=== PATIENT | female | born 1955 | race Caucasian/White ===

== ENCOUNTER 2024-09-29 10:18 | Outpatient (CLI) | payer MEDICARE, SELFPAY ==
--- NOTE | ~2024-09-29 | CT_ITS ---
CT Scan of the Chest without Contrast: Clinical Indication: Lung cancer screening, nicotine dependence Technique: Contiguous sections were acquired throughout the chest without intravenous contrast. Dose reduction technique was used on this scan by utilizing automated exposure control and iterative recon struction technique. The dose-length product (DLP) was 41.23 mGy-cm. Findings: There is no evidence of any significant mediastinal, hilar or axillary lymphadenopathy. The mediastin al soft tissues appear normal. There is no evidence of pleural or pericardial effusion. There is mild peripheral chronic interstitial change. There is linear scarring left lower lobe. No di screte pulmonary nodule evident. Images through the upper abdomen reveal no abnormalities. Impression: Lung RADS 2: Benign appearance. 12 month follow-up screening CT advised. Reviewed, dictated and finalized at location . Impression: Lung RADS 2: Benign appearance. 12 month follow-up screening CT advised.
== END 2024-09-29 10:19 | disposition home or self-care (01) ==
LOC: MICIMG 10:19
PROVIDERS: PCP Family Medicine; Visit Provider Family Medicine
DX: Z12.2 Encounter for screening for malignant neoplasm of respiratory organs (principal); F17.211 Nicotine dependence, cigarettes, in remission
CPT/HCPCS: 71271

== ENCOUNTER 2024-10-01 13:00 | Outpatient (CLI) | payer MEDICARE, SELFPAY ==
--- NOTE | ~2024-10-01 | DEXA_ITS ---
Bone Density Report Name: BETTY CHRISTY Age: 69 Sex: Female Ethnicity: White Date of : 1955 Indication: postmenopausal; screening for osteoporosis; height loss; prior fracture; asthma or emphysema; hysterectomy; Referring Provider: MARIANO YANES Study: Bone densitometry was performed. Exam Date: October 01, 2024 Accession number: [id number] Bone Density: Region BMD T-score Z-score Classification AP Spine(L1-L4) 0.787 -2.4 -0.2 Osteopenia Femoral Neck (Left) 0.578 -2.4 -0.6 Osteopenia Total Hip (Left) 0.740 -1.7 -0.1 Osteopenia Femoral Neck (Right) 0.561 -2.6 -0.8 Osteoporosis Total Hip (Right) 0.737 -1.7 -0.1 Osteopenia Femoral Neck Mean 0.570 -2.5 -0.7 Osteoporosis Total Hip Mean 0.738 -1.7 -0.1 Osteopenia World Health Organization criteria for BMD impression classify patients as: Normal (T-score at or above -1.0), Osteopenia (T-score between -1.0 and -2.5), or Osteoporosis (T-score at or below -2.5). 10-year Fracture Risk: FRAX not reported because: Some T-score for Spine Total or Hip Total or Femoral Neck at or below -2.5 Clinical Information Provided by Patient: Has had a low trauma fracture Has used the following medications: Vitamin D, Calcium Has the following medical conditions: Asthma or Emphysema, Hysterectomy Patient maximum height was 67 Menopause Age: 49 No regular weight bearing exercise Onset of menses at age 13 Number of children 1 Impression: The patient has established osteoporosis, based on the Right Femoral Neck T-score and the existence of a prior fracture. The patient has risk factors, including: previous fracture. Discussion: HIGH RISK OF FRACTURE. BONE DENSITY IS UNDESIRABLY LOW AT ONE OR MORE SKELETAL SITES, CONSISTENT WITH POSTMENOPAUSAL OSTEOPOROSIS. This patient's lowest T-score, in a patient who has previously fractured, meets the World Health Organization's (WHO) criteria for severe osteoporosis. In untreated patients, the risk of osteoporotic fracture increases approximately two-fold for each 1.0 SD decrease in T-score. Low bone density is not the only risk factor for fracture; also consider factors such as patient's age, frailty or poor health, risk of falling, risk of injury, previous osteoporotic fracture, family history of osteoporosis, cigarette smoking, low body weight, etc. Not everyone with low bone mineral density has osteoporosis; osteomalacia and other metabolic bone disorders should also be considered. Patients who have osteoporosis should be evaluated for specific diseases and conditions (secondary causes) that may cause or contribute to bone loss. The [place] [employer] Clinical Endocrinologists (AACE) and National Osteoporosis Foundation (NOF) recommend pharmacologic intervention for all postmenopausal women whose T-score is in this range. The patient should follow a healthful lifestyle (good nutrition with adequate calcium and vitamin D, and appropriate weight-bearing exercise). Follow-Up: Consider a repeat BMD and Vertebral Fracture Assessment (VFA) exam in 2 years or sooner if medically necessary, to reassess this patient's status. Reported by: VAMSHI on 10/01/2024 1:29:00 PM. Reviewed, dictated and finalized at location A.
--- NOTE | ~2024-10-01 | MM_ITS ---
EXAMINATION: MM screening marilou BI w marcelo HISTORY: Screening TECHNIQUE: Craniocaudal and mediolateral oblique 3-D tomosynthesis images were obtained and synthetic 2-D images were generated. CAD analysis was submitted and interpreted. COMPARISON: No prior mammogram is available for comparison at this institution. BREAST PARENCHYMAL COMPOSITION: Not dense: There are scattered areas of fibroglandular density. FINDINGS: There is no evidence of suspicious mass, calcification, or architectural distortion to sugg est malignancy in either breast. There has been no suspicious interval change. IMPRESSION: 1. No mammographic evidence of malignancy. 2. Recommend routine screening mammography in one year. BI-RADS Category 1: Negative Reviewed, dictated and finalized at location A.
--- OUTSIDE RECORDS SUMMARY | 2024-10-01 14:33 | XMS_ITS | Clinical Summary ---
Author Organization [facility] Address [address] [place] [address] Care Team Providers Care Mold Clamper Name Role Phone Rfanco Bryant Larry APRN-RESEARCH COMPLIANCE SPECIALIST Unavailable [phone] Karuna Zarate MD Primary Care Provider Source Comments [facility],non-owned Affiliates and Associated Physician Practices is amultiple site organization consisting of ambulatory clinics and hospital sitesin [place], [place], [place] and [place]. This disclosure is being madepursuant to the Care Everywhere program and may not contain all information available regarding this patient. Last updated 18.[facility] Allergies Active Allergy Reactions Criticality Noted Date Comments Duloxetine Swelling 02/03/2020 Influenza Vaccines Other 01/29/2015 Paroxetine Other 05/13/2015 Pregabalin Palpitations 11/23/2020 Other reaction(s): Other (See Comments) Other reaction(s): Other Muscle twinges/spasms, loss of coordination, change in memory Muscle twinges/spasms, loss of coordination, change in memory Muscle twinges/spasms, loss of coordination, change in memory Muscle twinges/spasms, loss of coordination, change in memory Muscle twinges/spasms, loss of coordination, change in memory Other reaction(s): Other Muscle twinges/spasms, loss of coordination, change in memory Muscle twinges/spasms, loss of coordination, change in memory Sertraline Diarrhea Low 05/13/2015 Medications * Be aware that medications may not be up to date on this document. Alwaysverify current medications with the patient. calcium carbonate-berna min D 600-400 MG-UNIT tablet Take 1 (one) tablet by mouth 3 times daily Active B Complex Vitamins (B COMPLEX PO) Take 1 tablet by mouth once daily Active acetaminophen (TYLENOL) 500 MG capsule Take 1 (one) capsule by mouth as needed for Fever or Pain Active FLUoxetine (PROzac) 20 MG capsule Active FLUoxetine (PROzac) 10 MG capsule TAKE 1 CAPSULE BY MOUTH DAILY IN ADDITION TO 20MG CAPSULE FOR TOTAL OF 30MG 03/10/20 24 Active GNP Magnesium Oxide 250 MG TAKE 1 TABLET BY ORAL ROUTE 2 TIMES DAILY 03/03/20 24 Active primidone (Mysoline) 50 MG tablet Take 1 (one) tablet by mouth 4 times daily Active omeprazole (PriLOSEC) 20 MG capsule TAKE 1 CAPSULE BY ORAL ROUTE ONCE DAILY FOR HEARTBURN Active fluticasone propionate (Flonase) 50 MCG/ACT nasal spray [place] 1 (one) spray into each nostril 2 times daily 16 g 5 05/22/20 24 Active cetirizine (ZyrTEC) 10 MG tablet Take 1 (one) tablet by mouth once daily 30 tablet 5 05/22/20 24 Active clonazePAM (KlonoPIN) 0.5 MG tablet Take 1 (one) tablet by mouth 2 times daily as needed for Anxiety 60 tablet 05/22/20 24 Active albuterol HFA (Proventil; Ventolin; Proair) 108 (90 Base) MCG/ACT inhaler INHALE 2 PUFFS BY MOUTH EVERY 6 HOURS NEEDED 18 g 1 09/03/19 25 Active meloxicam (Mobic) 7.5 MG tablet TAKE 1 TABLET BY MOUTH DAILY 30 tablet 09/17/19 25 Active meloxicam (Mobic) 7.5 MG tablet Take 1 (one) tablet by mouth once daily 30 tablet 1 05/22/20 24 025 Discontinued albuterol HFA (Proventil; Ventolin; Proair) 108 (90 Base) MCG/ACT inhaler Inhale 2 (two) puffs by mouth every 6 hours as needed 18 g 1 05/22/20 24 025 Discontinued Active Problems Problem Noted Date Diagnosed Date 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 Acute otitis externa of left ear 05/22/2024 Controlled substance agreement signed 05/22/2024 Personal history of sudden cardiac arrest 2021 Participant in health and wellness plan 05/17/20 22 Otalgia of both ears 05/17/2022 Numerous moles 05/17/2022 Moderate episode of recurrent major depressive d isorder 05/17/2022 Migraine without aura and wi thout status migrainosus, not intractable 05/17/2022 Meniere's disease of right ear 05/17/2022 Right shoulder tendonitis 05/17/2022 Left shoulder tendonitis 05/17/2022 History of chest pain 05/17/2022 H/O hysterectomy for benign disease 05/17/2022 Frontal sinus pain 05/17/2022 Patient left without being seen 05/17/2022 Easy bruising 05/17/2022 Dysphagia 05/17/2022 Difficult or painful urination 05/17/2022 Degenerative disc disease, lumbar 05/17/2022 Chills without fever 05/17/2022 Biceps tendon tear 05/17/2022 Benign paroxysmal positional vertigo of left ear 05/17/2022 Arthritis 05/17/2022 Ankle fracture, right 05/17/2022 Acute recurrent sinusitis 05/17/2022 Seborrheic keratoses 05/17/2022 Sensorineural hearing loss 05/17/2022 Panic attacks 05/17/2022 Post-COVID syndrome 02/17/2022 Bradycardia 02/17/2022 Breast lump 05/10/2021 Opioid withdrawal 04/26/2021 Elevated troponin 04/24/2021 Lumbar facet arthropathy 11/04/2020 Essential tremor 02/03/2020 Anxiety 11/11/2019 COPD 11/11/2019 Major Depression 11/11/2019 Glenoid labrum tear 04/16/2019 Gastro-esophageal reflux disease with esophagiti s 02/12/2019 Duodenal ulcer disease 02/12/2019 Paroxysmal atrial fibrillation 09/04/2018 Arthralgia 01/18/2018 Presence of intraocular lens 04/05/2017 Age-related nuclear cataract, bilateral 04/04/20 17 Contusion of rib on right side 01/23/2017 Fall 01/17/2017 Spinal stenosis 01/11/2017 Overview (05/22/2024): Added automatically from request for surgery [id number] Prediabetes 11/28/2016 Peripheral polyneuropathy 10/19/2016 Irritable bowel syndrome 09/28/2016 Tobacco abuse 09/28/2016 Anxiety and depression 06/23/2016 Patellofemoral stress syndrome 04/28/2016 Somatic dysfunction of lower extremities 016 Somatic dysfunction of lumbar region 04/18/2016 Dysfunction of right rotator cuff 12/01/2015 Chronic bilateral low back pain 11/11/2015 Abnormal MRI, cervical spine 10/27/2015 Prolapsed cervical intervertebral disc 6 History of basal cell carcinoma (BCC) 05/26/2015 Thoracic outlet syndrome 05/26/2015 Tobacco dependence syndrome 05/26/2015 Tremor 04/05/2015 Overview (05/22/2024): Primidone, as needed, but causes sedation Saw neurologist who diagnosed it with essential tremor. 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 was performing music and it didn't help her too much The more she works out she shakes, worse when she is using her muscles and moving - worse on the whole left side -memory hs been questionable the older she gets the worse it gets, lose tracks of words, can't think of the right word - starting to forget their first or last names of friends - Gastroesophageal reflux disease 02/24/2015 Fibromyalgia 02/16/2015 Vitamin D deficiency 02/16/2015 Seasonal allergies 01/29/2015 Resolved Problems Problem Noted Date Diagnosed Date Resolved Date Gastroenteritis 05/17/2022 06/05/2024 Diarrhea 05/17/2022 06/19/2024 Cough 05/17/2022 06/19/2024 Encounters Date Type Department Care Team Description 09/23/2024 Bulk Orders Only [facility] - Family Medicine [address] [place] [address] Karuna Zarate MD Screening mammogram for breast cancer 09/16/2024 Refill [facility] [address], [address] [place] [address] Karuna Zarate MD Refill Request 09/02/2024 Refill [facility] [address], [address] [place] [address] Karuna Zarate MD Refill Request 08/12/2024 Travel 07/10/2024 1:20 PM SALES NEGOTIATOR Office Visit [facility] - Orthopedic Surgery [address] [place] [address] [phone] Darnell Estrada MD Traumatic complete tear of right rotator cuff, subsequent encounter (Primary Dx) 07/10/2024 Travel 07/04/2024 2:00 PM SALES NEGOTIATOR Office Visit [facility] [address] [place] [address] Karuna Zarate MD Larsen, Paul M, MD Paroxysmal atrial fibrillation (Primary Dx); History of atrial fibrillation; Palpitations 07/04/2024 Travel from Last 3 Months Immunizations Immunization Administration Dates Next Due Pneumococcal Pcv13 Conj 11/11/2019 Family History Medical History Relation Name Comments Hypertension Brother CAD (Coronary Artery Disease) Father Dementia Father Mental Illness - Other Mother Relation Name Status Comments Brother Alive Father Mother Social History Tobacco Use Types Packs/Day Years Used Date Smoking Tobacco: Former Cigarettes 1 48 1 969 - 2017 Smokeless Tobacco: Never Tobacco Cessation:Counseling Given: Not Answered Alcohol Use Standard Drinks/Week Comments Yes 0 (1 standard drink = 0.6 oz pur e alcohol) RARE PHQ-2 Answer Date Recorded Patient Health Questionnaire-2 Score 0 05/22/2024 Comments No Sex and Gender Information Value Date Recorded Sex Assigned at Not on file Legal Sex Female 6:26 AM SALES NEGOTIATOR Gender Identity Not on file Sexual Orientation Not on file Last Filed Vital Signs Vital Sign Reading Time Taken Comments Blood Pressure 108/78 07/04/2024 2:18 PM SALES NEGOTIATOR Pulse 78 07/04/2024 2:18 PM SALES NEGOTIATOR Temperature 36.7 C (98 F) 07/04/2024 2:18 PM SALES NEGOTIATOR Respiratory Rate 20 02/03/2020 11:22 AM CDT Oxygen Saturation 97% 05/22/2024 2:47 PM SALES NEGOTIATOR Inhaled Oxygen Concentration - - Weight 57.2 kg (126 lb) 07/04/2024 2:18 PM SALES NEGOTIATOR Height 167.6 cm (5' 6 ) 05/29/2024 11:25 AM SALES NEGOTIATOR Body Mass Index 20.34 05/29/2024 11:25 AM SALES NEGOTIATOR Plan of Treatment Upcoming Encounters Date Type Department Care Team (Late st Contact Info) Description 07/10/2025 1:30 PM SALES NEGOTIATOR Office Visit [facility] [address] [place] [address] Alfredo Ward MD [address] [place] [address] [address] [place] [address] Health Maintenance Due Date Last Done Comments COLOGUARD (AGES 45-75) - COLON CA SCREENING [address] COLON[address]APHY - COLON CA SCREENING 1955 FLEX SIG - COLON CA SCREENING 1955 DTAP/TDAP/TD VACCINES (1 - Tdap) 1973 ZOSTER VACCINE (1 of 2) 2004 Respiratory Syncytial Virus (RSV) Vaccine Pt: or over 60 yrs (1 - Risk 60-74 years 1-dose series) 2014 FIT - COLON CA SCREENING 06/28/2017 06/28/2016, 10/2014 PNEUMOCOCCAL VACCINE 50+ (2 of 2 - PPSV23) 01/06/2020 11/11/2019 LUNG CANCER SCREENING 04/03/2020 04/03/2019 MAMMOGRAM 10/18/2023 10/17/2021, 01/14/2020 COVID-19 VACCINE (3 - 2023-2 5 season) 2024 06/30/2021, 09/16/2020 DEPRESSION SCREENING 06/11/2024 05/22/2024 MEDICARE AWV CALENDAR YEAR 2024 11/11/2019 INFLUENZA VACCINE (Season Ended) 2025 COLONOSCOPY - COLON CA SCREENING 04/11/2028 04/11/2018 (Done Outside Per Report) Colorectal Cancer Screening 04/11/2028 LIPID TESTING 05/27/2029 05/27/2024, 04/04/2019, 04/04/2019 BONE DENSITY TESTING Completed 10/05/2021, 01/14/20 HEPATITIS C SCREENING Completed 10/23/2022 HEPATITIS B VACCINE Aged Out No longe r eligible based on patient's age to complete this topic HIB VACCINE Aged Out No longer eligi ble based on patient's age to complete this topic HPV VACCINE Aged Out No longer eligi ble based on patient's age to complete this topic MENINGOCOCCAL (Group B) VACCINE SHARED DECISION-MAKING Aged Out No longer eligible based on patient's age to complete this topic MENINGOCOCCAL GROUPS A/C/Y/W VACCINE Aged Out No longer eligible based on patient's age to complete this topic Procedures Procedure Name Priority Date/Time Associated Diagnosis Comments AMB REFERRAL TO CARDIOLOGY Routine 07/04/2024 5:25 PM SALES NEGOTIATOR Palpitations History of atrial fibrillation LIPID PROFILE Routine 05/27/2024 9:20 AM SALES NEGOTIATOR Screening for cardiovascular condition DEXA BONE DENSITY AXIAL SKELETON Routine 01/14/2020 1:20 PM CDT Ovarian failure MAMMO BILAT SCREENING Routine 01/14/2020 1:19 PM CDT Breast cancer screening from Last 3 Months or Most Recently Relevant to Health Maintenance Results * AMB REFERRAL TO CARDIOLOGY (07/04/2024 5:25 PM SALES NEGOTIATOR) Karuna Zarate MD OUTPATIENT REFERRALS Fi nal Result * (ABNORMAL) LIPID PROFILE (05/27/2024 9:20 AM SALES NEGOTIATOR) Cholesterol 266(H) 100 - 199 mg/dL [facility] INSURANCE BILL Triglycerides 132 0 - 149 mg/dL [facility] INSURANCE BILL HDL Cholesterol 70 >39 mg/dL [facility] INSURANCE BILL VLDL Calculated 23 5 - 40 mg/dL [facility] INSURANCE BILL LDL Calculated 173(H) 0 - 99 mg/dL [facility] INSURANCE BILL Blood BLOOD SPECIMEN / Unknown 05/27/2024 9:20 AM SALES NEGOTIATOR 05/27/2024 Narrative [facility] INSURANCE BILL - 05/28/2024 6:09 AM SALES NEGOTIATOR [facility]formed at: [facility] [address], [place], [place] [id number] Inhalation Therapy Aide: Tang Linda PhD, Phone: [phone] us Karuna Zarate MD LAB - CHEMISTRY ORDERAB LES Final Result [facility] INSURANCE BILL [address] [place] [address] * DEXA BONE DENSITY AXIAL SKELETON (01/14/2020 1:20 PM CDT) Anatomical Region Laterality Modality Mammography 01/14/2020 1:26 PM CDT Narrative 01/14/2020 1:27 PM CDT BONE MINERAL DENSITY STUDY INDICATION: Osteoporosis screening. Postmenopausal status. FINDINGS: The average bone mineral density from L1 to L4 is0.900 g/cm2. The T-score is -2.3 and the Z-score is -0.2. The average bone mineral density of the totalmean hips is 0.742 g/cm2. The T-score is -2.1 and the Z-score is -0.5. ASSESSMENT: Findings are consistent with osteopenia. There is a moderately increased fracture risk. WORLD HEALTH ORGANIZATION DEFINITIONS OSTEOPENIA = -1 to -2.5 SD BELOW T SCORE. OSTEOPOROSIS = Less than -2.5 SD BELOW T SCORE *Reading Radiologist: Johanna Mera on 01/14/2020 at 1:27 PM Procedure Note Johanna Mera MD - 01/14/2020 BONE MINERAL DENSITY STUDY INDICATION: Osteoporosis screening. Postmenopausal status. FINDINGS: The average bone mineral density from L1 to L4 is0.900 g/cm2. The T-score is -2.3 and the Z-score is -0.2. The average bone mineral density of the totalmean hips is 0.742 g/cm2. The T-score is -2.1 and the Z-score is -0.5. ASSESSMENT: Findings are consistent with osteopenia. There is a moderately increased fracture risk. WORLD HEALTH ORGANIZATION DEFINITIONS OSTEOPENIA = -1 to -2.5 SD BELOW T SCORE. OSTEOPOROSIS = Less than -2.5 SD BELOW T SCORE *Reading Radiologist: Johanna Mera on 01/14/2020 at 1:27 PM Griffin Beltran MD DEXA ORDERABLES Final Result * MAMMO BILAT SCREENING (01/14/2020 1:19 PM CDT) Anatomical Region Laterality Modality Breast Bilateral Mammography 01/14/2020 2:20 PM CDT Narrative 01/14/2020 2:25 PM CDT DIGITAL BILATERAL SCREENING MAMMOGRAMS WITH CAD AND 3-D TOMOSYNTHESIS DATE: 01/14/2020, 12:43 PM PREVIOUS EXAM DATE: None, new baseline. INDICATION: Screening TECHNIQUE: Bilateral craniocaudad (CC) and mediolateral oblique (MLO) views. Images were interpreted with the aid of CAD. 3-D tomosynthesis images were performed. TECHNOLOGIST: Corinne Muñiz, RT (R)(M) TISSUE DENSITY: Heterogeneously dense. This may lower the sensitivity of mammography. Please correlate with clinical examination. FINDINGS: Benign-appearing calcifications are noted. There is subareolar dense tissue. No mass nor microcalcification nor worrisome finding is evident in either breast. ASSESSMENT: (BI-RADS 2) Benign finding. RECOMMENDATIONS: Continued annual screening mammography The above findings should be correlated with physical examination. A relatively nonspecific study should not preclude additional evaluation if suspicious findings are present clinically. An [employer]. [facility] Centers utilize [email or web address] as a reminder system to notify patients of their next recommended mammograms. Edited by Nicki Poole on 01/14/2020 2:21 PM *Reading Radiologist: Johanna Mera on 01/14/2020 at 2:25 PM Griffin Beltran MD MAMMO ORDERABLES Final Result from Last 3 Months or Most Recently Relevant to Health Maintenance Insurance MEDICAID - [place] [facility] MANAGED MEDICARE ADV Care Teams Mold Clamper Relationship Specialty Start Date End Date Karuna Zarate MD [address] [place] [id number] PCP - General Internal Medicine 05/22/24 Bryant Franco APRN-RESEARCH COMPLIANCE SPECIALIST Jillian [facility] [address] [place] [address] Nurse Practitioner Nurse Practitioner Psychiatric Mental Health 02/03/20
== END 2024-10-01 13:01 | disposition home or self-care (01) ==
LOC: CHSIMG 13:01
PROVIDERS: PCP Family Medicine; Visit Provider Family Medicine
DX: Z12.31 Encounter for screening mammogram for malignant neoplasm of breast (principal); Z78.0 Asymptomatic menopausal state; M85.89 Other specified disorders of bone density and structure, multiple sites; M81.0 Age-related osteoporosis without current pathological fracture
CPT/HCPCS: 77063; 77067; 77080

== ENCOUNTER 2025-04-10 12:41 | Outpatient (CLI) | payer MEDICARE, MEDICAID, SELFPAY ==
--- NOTE | ~2025-04-10 | MR_ITS ---
EXAMINATION: MR cervical spine wo con DATE: 04/10/2025 13:31 INDICATION: Neck pain. TECHNIQUE: Magnetic resonance imaging (MRI) of the cervical spine was performed without intravenous contrast. COMPARISON: None FINDINGS: There is 6 degrees dextrocurvature of cervical spine. Vertebral body heights are normal. There is mildly decreased disc height at C3-C4 and severely decreased disc height at C4-C5, C5-C6, and C6-C7. The spinal cord signal intensity is normal. The following disc levels are specifically discussed: C2-C3: There is a central extrusion. There is no uncovertebral joint osteoarthritis. There is severe right and moderate left facet joint osteoarthritis. There is no neural foraminal stenosis. There is no central canal stenosis. C3-C4: There is a central extrusion. There is severe left uncovertebral joint osteoarthritis. There is severe bilateral facet joint osteoarthritis. There is moderate left neural foraminal stenosis. There is no central canal stenosis. C4-C5: The disc is bulging. There is moderate right and severe left uncovertebral joint osteoarthritis. There is moderate right and severe left facet joint osteoarthritis. There is moderate left neural foraminal stenosis. There is mild central canal stenosis. C5-C6: The disc is bulging. There is severe bilateral uncovertebral joint osteoarthritis. There is mild bilateral facet joint osteoarthritis. There is mild bilateral neural foraminal stenosis. There is mild central canal stenosis. C6-C7: The disc is bulging. There is severe bilateral uncovertebral joint osteoarthritis. There is no facet joint osteoarthritis. There is mild right neural foraminal stenosis. There is mild central canal stenosis. C7-T1: The disc does not extend beyond the endplate margin. There is no uncovertebral joint osteoarthritis. There is moderate right and severe left facet joint osteoarthritis. There is mild left neural foraminal stenosis. There is no central canal stenosis. IMPRESSION: 1. Severe cervical spondylosis. Reviewed, dictated and finalized at location E.
== END 2025-04-10 12:42 | disposition home or self-care (01) ==
PROVIDERS: PCP Family Medicine; Visit Provider Family Medicine
DX: M47.812 Spondylosis without myelopathy or radiculopathy, cervical region (principal)
CPT/HCPCS: 72141

== ENCOUNTER 2025-04-13 05:41 | Emergency (ER) | payer MEDICARE, MEDICAID, SELFPAY ==
[2025-04-13 05:38] VITALS: BP 120/79; PULSE 81; RESP 14; TEMP 37; O2SAT 100
--- NOTE | 2025-04-13 05:49 | ECG_ITS ---
Test Date: 2025-04-13 05:52:59 Measurements Intervals [place] Rate: 91 P: 59 OK: 145 QRS: -28 QRSD: 85 T: 65 QT: 369 QTc: 456 Interpretive Statements SINUS RHYTHM BORDERLINE LEFT AXIS DEVIATION [QRS AXIS < -20] No previous ECG available for comparison Electronically Signed On 04-13-2025 09:39:29 RAIL WASHER by Ponce Horowitz M.D.
--- NOTE | 2025-04-13 07:14 | ED.ARRPALP ---
HPI - Arrhythmia/Palpitations General Chief Complaint: Arrhythmia/Palpitations Stated Complaint: palpations Time Seen by Provider: 04/13/25 06:59 History of Present Illness HPI narrative: Patient with h/o afib and anxiety had an episode of palpitations prior to arrival here; she did try taking a dose of clonazepam 20 minutes before EMS arrived, she converted back to sinus rhythm while in the ambulance. Related Data Home Medications ?Medication ?Instructions ?Recorded ?Confirmed ?Last Taken ?Type albuterol sulfate 90 mcg/actuation 1 puff inhalation Q4H PRN 08/12/24 03/17/25 Unknown History aerosol inhaler (Ventolin HFA) aspirin 81 mg tablet,delayed 81 mg PO DAILY 08/12/24 03/17/25 Unknown History release cetirizine 10 mg tablet 10 mg PO DAILY PRN 08/12/24 03/17/25 Unknown History fluticasone propionate 50 2 spray intranasal DAILY 08/12/24 03/17/25 Unknown History mcg/actuation nasal spray,suspension (Flonase Allergy Relief) fluoxetine 20 mg tablet 20 mg PO DAILY 03/17/25 03/17/25 Unknown History Allergies Allergy/AdvReac Type Severity Reaction Status Date / Time cat dander AdvReac Intermediate Asthma Verified 04/13/25 05:50 Influenza Virus Vaccines AdvReac Intermediate infection Verified 04/13/25 05:50 Phenylpiperazine AdvReac Intermediate Diarrhea Verified 04/13/25 05:50 Antidepressant ragweed pollen AdvReac Intermediate Asthma Verified 04/13/25 05:50 Review of Systems Review of Systems: All systems reviewed & are unremarkable except as noted in HPI and below PMFSH Past Medical History Medical History BMI (body mass index) 20.0-29.9 Panic disorder Depression with anxiety Chronic pain Osteoarthritis Irritable bowel Headache GERD (gastroesophageal reflux disease) COPD (chronic obstructive pulmonary disease) Arthritis Asthma Allergies Family History Family History Father Hypertension Heart problem Mother Alcoholism Depression Anxiety Thyroid disorder Sibling Alcoholism Hypertension Heart problem Other Asthma Depression Anxiety Grandparent Alcoholism Grandparent Cerebrovascular accident Social History Social History Social History: Caffeine-green tea occasionally Smoking status: Former smoker Second hand tobacco smoke exposure: Yes Smoking end date: 08/10/19 Alcohol intake: current Alcohol use details: rarely Substance use: current Substance use type: marijuana Do You Feel Safe in your Home?: Yes Lack of Transportation: No Lack of Food: Never True Current Housing: I Have Housing Concerned About Future Housing: No Difficulty Paying Gas/Electric Bills: No Difficulty Paying for Meds: No Currently Unemployed: No Education: Associate Degree Difficulty w/ Childcare or Family Care: No Living arrangements: with family Occupation/Education: occupation 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 EYES: EOMI, conjunctiva normal ENT: Hearing grossly intact LUNGS: Nonlabored breathing. HEART: [Regular rate and rhythm] ABD: [Soft], [nontender to palpation] EXT: Normal range of motion SKIN: [No rashes or lesions.] NEURO: [Alert and oriented x 3. No gross focal sensory or strength deficits.] PSYCH: Normal affect Course Vital Signs Vital signs: Vital Signs Temperature 98.6 F 04/13/25 05:38 Pulse Rate 81 04/13/25 05:38 Respiratory Rate 14 04/13/25 05:38 Blood Pressure 120/79 04/13/25 05:38 Pulse Oximetry 100 04/13/25 05:38 Oxygen Delivery Room Air 04/13/25 05:38 Temperature 98.6 F 04/13/25 05:38 Pulse Rate 81 04/13/25 05:38 Respiratory Rate 14 04/13/25 05:38 Blood Pressure 120/79 04/13/25 05:38 Pulse Oximetry 100 04/13/25 05:38 Oxygen Delivery Room Air 04/13/25 05:38 MDM - Arrhythmia/Palpitations MDM Narrative Medical decision making narrative: Patient presenting here with palpitations last less than hour, seem to have self resolved after taking some clonazepam at home, she is denying any complaints right now, she never had any chest pain or shortness of breath EKG here shows normal sinus rate and rhythm; On my independent interpretation, sinus rhythm rate 91, FL 145, QRS 185, QTC 456, no ST elevation or depression or signs of acute ischemia or arrhythmia; and she brought an EKG tracing with her from EMS that showed atrial fibrillation with rate in 150. electrolytes within acceptable limits. She does report having severe allergy last few days, she has been seeing her daughter craig who has multiple cats and she is allergic to cats. She is already taking Flonase, zyrtec, I did let her know she can go up on her dose of Zyrtec to several tabs a day, I will also rx azelastine spray, since she is already on Flonase. Patient agreeable to this. Lab Data 04/13/25 07:47 04/13/25 07:47 Labs: Lab Results 04/13/25 Range/Units 07:47 WBC 9.8 (4.5-10.0) K/mm3 RBC 4.23 (4.2-5.4) M/mm3 Hgb 13.0 (12.0-15.0) g/dL Hct 40.1 (37.0-47.0) % MCV 94.8 (80-100) fl MCH 30.7 (26-34) pg MCHC 32.4 (32-36) g/dl RDW 13.7 (11.5-14.5) % Plt Count 344 (150-375) k/mm3 MPV 9.4 (7.4-10.4) fl Immature Gran % (Auto) 0.3 (0-0.5) % Neut % (Auto) 70.2 (45.5-73.1) % Lymph % (Auto) 16.7 L (18.3-44.2) % Phillips % (Auto) 9.8 H (2.6-8.5) % Eos % (Auto) 2.2 (0-4.4) % Baso % (Auto) 0.8 (0.2-1.2) % Lymph # (Auto) 1.63 (0.9-3.2) K/mm3 Phillips # (Auto) 1.0 H (0.1-0.6) K/mm3 Eos # (Auto) 0.2 (0-0.3) K/mm3 Baso # (Auto) 0.1 (0.0-0.1) K/mm3 Abs Immat Gran (auto) 0.03 (0.00-0.031) K/mm3 Absolute Neuts (auto) 6.9 H (1.3-6.7) K/mm3 Absolute Nucleated RBC 0.000 (0.0-0.012) K/mm3 Nucleated RBC % 0.0 (0.0-0.2) % Sodium 139 (137-145) mmol/L Potassium 3.8 (3.4-5.0) mmol/L Chloride 108 H (98-107) mmol/L Carbon Dioxide 24 (22-30) mmol/L Anion Gap 7 (4-12) mmol/L BUN 14 (7-17) mg/dL Creatinine 0.65 L (0.7-1.0) mg/dL Estim Creat Clear Calc 62 ml/min Estimated GFR > 60 (59 - ) Glucose 116 H (65-110) mg/dL Calcium 9.0 (8.4-10.2) mg/dL Magnesium 1.8 (1.6-2.3) mg/dL Total Bilirubin 0.4 (0.2-1.3) mg/dL AST 31 (14-36) U/L ALT 19 (6-35) U/L Alkaline Phosphatase 71 (38-126) U/L Troponin I < 0.012 (0.000-0.034) ng/mL Total Protein 7.3 (6.3-8.2) g/dL Albumin 4.2 (3.5-5.1) g/dL Discharge Plan Discharge Clinical Impression: Palpitations Patient Disposition: Home Condition: Stable Instructions: A-fib (Atrial Fibrillation) (ED) Additional Instructions: your labs look normal today, please follow-up with a manager flight operations since if this happens again you may benefit from medications to keep your heart rate under control. You can always return to the emergency room for any further issues. Patient Language: Haitian Prescriptions: New azelastine 137 mcg (0.1 %) spray,non-aerosol 137 mcg intranasal Q12H Qty: 30 0RF Rx Instructions: administer into each nostril No Action albuterol sulfate [Ventolin HFA] 90 mcg/actuation HFA aerosol inhaler 1 puff inhalation Q4H PRN fluticasone propionate [Flonase Allergy Relief] 50 mcg/actuation spray,suspension 2 spray intranasal DAILY Rx Instructions: administer into each nostril cetirizine 10 mg tablet 10 mg PO DAILY PRN aspirin 81 mg tablet,delayed release (DR/EC) 81 mg PO DAILY meclizine 12.5 mg tablet 12.5 mg PO TID PRN (Reason: dizziness) Qty: 20 0RF fluoxetine 20 mg tablet 20 mg PO DAILY methocarbamol 500 mg tablet 500 mg PO TID PRN (Reason: muscle spasm) Qty: 30 0RF calcium carbonate-vitamin D3 600 mg-25 mcg (1,000 unit) capsule 1 cap PO DAILY Qty: 90 0RF clonazepam [Klonopin] 0.5 mg tablet 0.5 mg PO BID PRN (Reason: severe anxiety) Qty: 30 0RF Follow-up/Referrals: Fady Hall DO [Primary Care Provider, Family Practice] - 2 Days
--- OUTSIDE RECORDS SUMMARY | 2025-04-13 07:17 | XMS_ITS | Patient Health Record ---
Author Organization [facility] Address [address] [place] [address] Care Team Providers Care Welder Fitter Name Role Phone Fady Hall DO Primary Care Provider Maurice LeggettDonald dukeistin Unavailable [phone] ArceliaJulee mcclure Unavailable [phone] Allergies Allergen (clinical drug ingredient) Drug/Non Drug Allergy documented on EMR Reaction Allergy Type Onset Date Status Anti depressant (uncoded) Unknown Allergy Active Cats (uncoded) Unknown Allergy Activ e Vaccine product containing Influenza virus antigen (medicinal product) Flu vaccine (uncoded) Unknown Allergy Active Ragweed Unknown Allergy Active Results Component Value Reference Range Flag Notes DRUG MONITOR, BENZO, QN, URI NE ([id number]) Reviewed date:09/08/2024 09:24:22 PM Interpretation: Performing Lab:[facility] [id number], [id number] Jean Carlos Howard Notes/Report: FASTING: UNKNOWN Alphahydroxyalprazolam NEGATIVE <25 ng/mL Alphahydroxymidazolam NEGATIVE <50 ng/mL Alphahydroxytriazolam NEGATIVE <50 ng/mL Aminoclonazepam 138 <25 ng/mL H medMATCH Aminoclonazepam CONSISTENT Hydroxyethylflurazepam NEGATIVE <50 ng/mL Lorazepam NEGATIVE <50 ng/mL Nordiazepam NEGATIVE <50 ng/mL Oxazepam NEGATIVE <50 ng/mL Temazepam NEGATIVE <50 ng/mL Benzodiazepines Comments See Benzodiazepines Notes, LDT Notes PRESCRIBED DRUGS, medMATCH(R ) ([id number]) Reviewed date:09/08/2024 09:23:02 PM Interpretation: Performing Lab:[id number], [id number] Lydia Ramirez MD Notes/Report: FASTING: UNKNOWN medMATCH Summary Prescribed Prescribed Not Prescribed Consistent Inconsistent Inconsistent Clonazepam Marijuana Metabolite Prescribed Drug 1 Clonazepam DRUG MONITOR, MARIJUANA META B, QN, URINE ([id number]) Reviewed date:09/08/2024 09:24:34 PM Interpretation: Performing Lab:CB, [facility] [id number], [id number] Jean Carlos Howard, Director - [id number] [place] [facility] Notes/Report: FASTING: UNKNOWN Marijuana Metabolite >5000 <5 ng/mL H medMATCH Marijuana Metab INCONSISTENT A Marijuana Comments See Rodolfo estrada Notes, LDT Notes Notes and Comments This drug testing is for medical treatment only. Analysis was performed as non-forensic testing and these results should be used only by healthcare providers to render diagnosis or treatment, or to monitor progress of medical conditions. Benzodiazepines Notes: Aminoclonazepam detected is consistent with the use of the drug Clonazepam. Marijuana Notes: Marijuana Metabolite detected is consistent with exposure to Marijuana (THC) and/or hemp derived products. Some jurisdictions do not include hemp within the definition of Marijuana. LDT Notes: Confirmation tests were developed and their analytical performance characteristics have been determined by [facility]. It has not been cleared or approved by the FDA. This assay has been validated pursuant to the CLIA regulations and is used for clinical purposes. medMATCH(R) enables providers to identify if drug use is consistent or inconsistent with a corresponding prescribed medication(s) list. Healthcare Providers needing Interpretation assistance, please contact us at [phone] ( ) M-F, 8am to 10pm EST UDT Reviewed date:08/27/2024 02:20:13 PM Interpretation: Performing Lab: Notes/Report: Amphetamine (AMP) N 0 - 1000 ng/ml Buprenorphine (BUP) N 0 - 10 ng/ml Oxazepam (BZO) N 0 - 300 ng/ml Cocaine (NIGHAT) N 0 - 300 ng/ml Methamphetamine (mAMP) N 0 - 300 ng/ml Methylenedioxymethamphetamin e (MDMA) N 0 - 500 ng/ml Morphine (MOP) N 0 - 25 ng/ml Methadone (MTD) N 0 - 300 ng/ml Oxycodone (OXY) N 0 - 300 ng/ml THC P 0 - 50 ng/ml x N 0 - 1000 ng/ml x N 0 - 1000 ng/ml x N 0 - 300 ng/ml x N 0 - 300 ng/ml x N 0 - 300 ng/ml Reason For Referral No Information Medications Medication SIG (Take, Route, Frequency, Duration) Notes Start Date End Date Status FLUoxetine HCl 20 MG Tablet 1 tablet Oral daily; Duration: 90 days Active Albuterol Sulfate HFA 108 (90 Base) MCG/ACT Aerosol Solution INHALE 2 PUFFS BY MOUTH EVERY 6 HOURS NEEDED Inhalation; Duration: 25 Days Active Cetirizine HCl 10 MG Tablet TAKE 1 TABLET BY MOUTH ONCE DAILY Oral; Duration: 30 Days Active clonazePAM 0.5 MG Tablet TAKE 1 TABLET B Y MOUTH TWICE DAILY NEEDED FOR SEVERE ANXIETY Oral Active Fluticasone Propionate 50 MCG/ACT Suspension SHAKE LIQUID AND USE 1 SPRAY IN EACH NOSTRIL TWICE DAILY Nasal; Duration: 30 Days Active Meloxicam 7.5 MG Tablet TAKE 1 TABLET BY MOUTH DAILY Oral; Duration: 30 Days Not-Taking Social History Tobacco Use: Social History Observation Description Date Details (start date - stop date) Former Smoker NA - 08/10/2019 Sex Assigned At : Social History Observation Description Sex Assigned At Female Social History Miscellaneous: Social Info Question Answer Notes Advance Care Planning Advance Directive Durable Power of Bulb Brander for Healthcare,Living Will Safety issues: Do you feel safe at home? Yes Are there any firearms in the house? No Social History Social Info Question Answer Notes Household: Marital Status: Number of Adults in household: 2 Number of Children in Household: 0 Level of Education: Not Finished College Household: Social Info Question Answer Notes Household Number of adults in household: 2 Drug/Alcohol: Social Info Question Answer Notes Drugs Have you used drugs other than those for medical reasons in the past 12 months? No AUDIT-C (Standard) Points 1 Did you have a drink containing alcohol in the p ast year? Yes How often did you have six or more drinks on one occasion in the past year? Never (0 point) How many drinks did you have on a typical day when you were drinking in the past year? 1 or 2 drinks (0 point) How often did you have a drink containing alcohol in the past year? Monthly or less (1 point) Tobacco Use: Social Info Question Answer Notes Tobacco Control (Standard) Tobacco use: Former smoker When did you stop smoking? 08/10/2019 How long has it been since you last smoked? 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 THC vape Do you drink alcohol? No Problems Problem Type SNOMED Code ICD Code Onset Dates Problem Status W/U Status Risk Notes Problem Mild recurrent major depression (25713002) Major depressive disorder, recurrent, mild (F33.0) Active confirmed Problem Generalized anxiety disorder (75799534) Generalized anxiety disorder (F41.1) Active confirmed Problem Nondependent cannabis abuse (949084514) Marijuana use (F12.90) Active confirmed Problem Long-term current use of drug therapy (054906690) correction prescription benzodiazepine use (Z79.899) Active confirmed Vital Signs Heart Rate 60 /min 03/09/2025 Height-cm 165.1 cm 03/09/2025 Blood pressure diastolic 73 mm Hg 03/09/2025 Weight-kg 57.15 kg 03/09/2025 Height 65 in 03/09/2025 Blood pressure systolic 115 mm Hg 03/09/2025 Weight 126.0 lbs 03/09/2025 BMI 20.97 kg/m2 03/09/2025 Encounters Encounter Location Date Provider Diagnosis [facility] [address] [place] [address] [address] 08/26/2024 Sheryl Yoanna Generalized anxiety disorder F41.1 ; Major depressive disorder, recurrent, mild F33.0 ; Marijuana use F12.90 ; propagation manager prescription benzodiazepine use Z79.899 ; Encounter for screening for depression Z13.31 and Encounter for screening for cardiovascular disorders Z13.6 [facility], [place] [address] [address] 09/17/2024 Julee Rahman Generalized anxiety disorder F41.1 [facility], [address] [address] 09/24/2024 Julee Paniaguater Generalized anxiety disorder F41.1 [facility] [place] [address] [place] [address] 09/24/2024 Julee Rahman Generalized anxiety disorder F41.1 and Major depressive disorder, recurrent, mild F33.0 [facility] [place] [address] [place] [address] 10/15/2024 Julee Rahman Generalized anxiety disorder F41.1 [facility] [place] [address] [place] [address] 11/26/2024 Julee Rahman [facility] [address] [place] [address] 03/09/2025 Sheryl Lenz Major depressive disorder, recurrent, mild F33.0 ; Generalized anxiety disorder F41.1 and Marijuana use F12.90 [facility] [address] [place] [address] 08/27/2024 Sheryl Lenz Generalized anxiety disorder F41.1 and Major depressive disorder, recurrent, mild F33.0 [facility] [address] [place] [address] 09/22/2024 Sheryl Lenz [facility] [address] [place] [address] 10/08/2024 Sheryl Lenz [facility] [address] [place] [address] 02/11/2025 Sheryl Lenz Assessments Encounter Date Diagnosis (ICD Code) Assessment Notes Treatment Notes Treatment Clinical Notes Section Notes 08/27/2024 Major depressive disorder, recurrent, mild (ICD-10 - F33.0) 08/27/2024 Generalized anxiety disorder (ICD-10 - F41.1) 09/17/2024 Generalized anxiety disorder (ICD-10 - F41.1) 09/24/2024 Major depressive disorder, recurrent, mild (ICD-10 - F33.0) 1. Depression and Anxiety Assessment: - Reports improvement in depressive symptoms, stating not feeling depressed, crying over everything, or feeling sad like I can't go on - Acknowledges ongoing concerns about the state of the country and worries for herself and her grandchildren - Engaging in physical activities, such as swimming at the [facility], contributing to improved mood - Feels generally depressed about the state of our country but emphasizes actually doing really well overall - Notes reduction in anger, which was previously more intense - Primary motivation for attending group is socialization rather than addressing acute symptoms Plan: - Continue participation in Dialectical Behavior Therapy (DBT) group for 12 weeks, focusing on mindfulness skills, distress tolerance, emotion regulation, and interpersonal effectiveness - Encourage ongoing physical activity at the [facility], including swimming and core exercise classes, while being mindful of overexertion - Promote continued use of coping strategies, such as petting animals and taking drives, as mentioned in the handout on self-soothing techniques - Monitor progress in socialization and overall mood throughout the group therapy process -Begin to practice Prabhakar Mind, and What and How skills for mindfulness 09/24/2024 Generalized anxiety disorder (ICD-10 - F41.1) 1. Depression and Anxiety Assessment: - Reports improvement in depressive symptoms, stating not feeling depressed, crying over everything, or feeling sad like I can't go on - Acknowledges ongoing concerns about the state of the country and worries for herself and her grandchildren - Engaging in physical activities, such as swimming at the [facility], contributing to improved mood - Feels generally depressed about the state of our country but emphasizes actually doing really well overall - Notes reduction in anger, which was previously more intense - Primary motivation for attending group is socialization rather than addressing acute symptoms Plan: - Continue participation in Dialectical Behavior Therapy (DBT) group for 12 weeks, focusing on mindfulness skills, distress tolerance, emotion regulation, and interpersonal effectiveness - Encourage ongoing physical activity at the [facility], including swimming and core exercise classes, while being mindful of overexertion - Promote continued use of coping strategies, such as petting animals and taking drives, as mentioned in the handout on self-soothing techniques - Monitor progress in socialization and overall mood throughout the group therapy process -Begin to practice Prabhakar Mind, and What and How skills for mindfulness 09/24/2024 Generalized anxiety disorder (ICD-10 - F41.1) 10/15/2024 Generalized anxiety disorder (ICD-10 - F41.1) 03/09/2025 Major depressive disorder, recurrent, mild (ICD-10 - F33.0) 08/26/2024 Major depressive disorder, recurrent, mild (ICD-10 - F33.0) 08/26/2024 Generalized anxiety disorder (ICD-10 - F41.1) 08/26/2024 Marijuana use (ICD-10 - F12.90) 03/09/2025 Generalized anxiety disorder (ICD-10 - F41.1) on clonazepam through PCP- marijuana use and controlled substance policy 03/09/2025 Marijuana use (ICD-10 - F12.90) 08/26/2024 propagation manager prescription benzodiazepine use (ICD-10 - Z79.899) 08/26/2024 Encounter for screening for depression (ICD-10 - Z13.31) 08/26/2024 Encounter for screening for cardiovascular disorders (ICD-10 - Z13.6) 08/26/2024 Other Learning About Depression Screening material was printed Ngoc Patel, a female patient with a history of depression, anxiety, and fibromyalgia, presents for medication management and refills of fluoxetine and clonazepam. Major Depressive Disorder Assessment: Patient reports a history of depression since her thirties, which she describes as environmentally induced. She has been on fluoxetine for several years, currently taking 20 mg daily (recently reduced from 30 mg). Patient reports feeling better on the lower dose. No current suicidal ideation, but reports past passive suicidal ideations. Family history of mental illness noted. Plan: - Discontinue fluoxetine 20 mg daily - Start duloxetine 30 mg PO daily, titrate to 60 mg daily as tolerated - Informed patient of potential benefits for depression, anxiety, and neuropathic pain - Discussed similar side effect profile to fluoxetine - Patient agreed to try duloxetine - Follow up in 4 weeks to assess medication efficacy and tolerability - Offer group therapy starting next week, every Sunday for 12 weeks, 4 to 5:30 PM Generalized Anxiety Disorder with Panic Attacks Assessment: Patient reports a history of anxiety and panic attacks, with the last severe episode occurring approximately 1.5-2 years ago. Currently uses clonazepam as needed for anxiety management, typically taking up to 1 mg per day, rarely 2 mg, and not daily. Patient finds clonazepam effective for managing anxiety symptoms. Plan: - Continue clonazepam 1 mg PO PRN for anxiety, not to exceed 2 mg daily - Informed patient of practice policy regarding controlled substances and THC use - Discussed risks of long-term benzodiazepine use, including potential cognitive effects with aging - Consider alternative anxiety management strategies in future visits Chronic Pain (Fibromyalgia, Arthritis, Neuropathic Pain) Assessment: Patient reports chronic pain related to fibromyalgia, arthritis, and symptoms suggestive of peripheral neuropathy (tingling in hands, sharp sensations). Previous trials of gabapentin were unsuccessful due to side effects. Plan: - Initiate duloxetine 30 mg PO daily, titrate to 60 mg daily as tolerated - Informed patient of potential benefits for neuropathic pain - Reassess pain symptoms at follow-up visit in 4 weeks Insomnia and Obstructive Sleep Apnea Assessment: Patient reports difficulty falling asleep and staying asleep. Has a diagnosis of obstructive sleep apnea and owns a CPAP machine but has not been using it consistently, especially since moving. Plan: - Encourage consistent use of CPAP machine - Recommend establishing a pre-bedtime routine to facilitate CPAP use - Assess sleep quality at follow-up visit - Consider additional sleep interventions if issues persist Substance Use (Cannabis, Nicotine) Assessment: Patient reports daily use of cannabis (vape concentrate) and nicotine (vape). No alcohol use. Cannabis use impacts eligibility for controlled substance prescriptions under practice policy. Plan: - Educate patient on practice policy regarding controlled substances and cannabis use - Discuss potential risks and benefits of cannabis use in context of overall treatment plan - Continue to monitor substance use at follow-up visits 03/09/2025 Russ Patel, an elderly female patient with a history of chronic pain and nerve ablation, presents with worsening headaches, family stress, and sleep disturbances. Depression Assessment: Patient is currently stable on fluoxetine 20 mg daily. A previous attempt to switch to duloxetine was unsuccessful, leading to a return to fluoxetine. The patient reports satisfaction with the current dosage and does not wish to increase it further. Plan: - Continue fluoxetine 20 mg daily Anxiety Assessment: Patient expresses a desire to continue clonazepam for anxiety management. Previous discussions about transferring this prescription to the primary care physician were noted due to marijuana use and controlled substance policy Plan: - Continue fluoxetine 20 mg daily - Follow up on continuing clonazepam prescription with primary care physician - Discussed risks of long-term use of benzodiazepines Chronic Pain Assessment: Patient continues to experience chronic pain affecting multiple areas including back, shoulders, and head. The pain intensifies by the end of the day, significantly impacting quality of life. Previous treatments have included meloxicam, which the patient is currently not taking due to running out of the medication. Plan: - Reschedule appointment with pain specialist Sleep Disturbance Assessment: Patient reports poor sleep quality, rarely achieving 5-6 hours of uninterrupted sleep. Contributing factors include discomfort with using prescribed CPAP machine and frequent nighttime urination. The sleep disturbance is resulting in daytime fatigue. Plan: - Encourage resumption of CPAP use - Consider referral to sleep specialist if sleep issues persist Substance Use (Cannabis, Nicotine) Assessment: Patient reports daily use of cannabis (vape concentrate) and nicotine (vape). No alcohol use. Cannabis use impacts eligibility for controlled substance prescriptions under practice policy. Plan: - Educate patient on practice policy regarding controlled substances and cannabis use - Discuss potential risks and benefits of cannabis use in context of overall treatment plan - Continue to monitor substance use at follow-up visits Psychosocial Stressors Assessment: Patient is experiencing significant family stress, particularly related to a granddaughter with severe health issues including Ca-Danlos Syndrome (EDS), Postural Orthostatic Tachycardia Syndrome (POTS), and fibromyalgia. Financial concerns are also present, impacting the patient's ability to provide support and maintain her own vehicle. Plan: - Provide information on community resources for both patient and granddaughter - Offer option for more urgent therapy sessions if needed Medical Decision Making Ngoc Patel is an adult female with a history of chronic pain, presenting with worsening headaches, family stress, and sleep issues. The patient's recent left-sided headaches, potentially related to a previous nerve ablation in her neck, are concerning. The localization and radiation of pain up the neck, along with exacerbation by coughing, suggest a possible connection to the prior nerve procedure. Differential diagnoses include cervicogenic headache, medication overuse headache, and sinus-related headache. The patient's use of [id number] pain medications (Tylenol, ibuprofen) and discontinuation of meloxicam may be contributing factors. Sleep disturbances, potentially exacerbated by non-compliance with CPAP therapy, could also be influencing headache frequency and intensity. The patient's chronic pain conditions, including back and shoulder pain, complicate the clinical picture. Current psychiatric medication (fluoxetine) appears to be adequately managing mood symptoms, but ongoing anxiety necessitates continued clonazepam use. The complexity of the case is increased by the patient's multiple comorbidities and psychosocial stressors. Plan Of Treatment Next Appt Details Provider Name:Sheryl morgan, 09/02/2025 11:30:00 AM, [address], [facility] [address], [place], [address], Insurance Providers Payer Name Payer Address Payer Phone Subscriber Number Group Number Insured Name Patient Relationship to Insured Coverage Start Date Coverage End Date [facility] [address] [place] [phone] [id number] Ngoc Patel Self - patient is the insured Medical (General) History Medical History History ICD Code Past Psychiatric History: Anxiety Disord er,Major Depressive Episode atrial fibrillation: Yes chronic fatigue syndrome: Yes essential tremor: Yes Surgical History Surgery Date(Month/Year) orthopedic right knee orthopedic wrist Hospitalization History Reason Date(Month/Year) , a fib x2, opioid induced
--- OUTSIDE RECORDS SUMMARY | 2025-04-13 07:17 | XMS_ITS | Clinical Summary ---
Author Organization [facility] Address [address] [place] [address] Care Team Providers Care Timber Treating Tank Operator Name Role Phone FrancoBryantemerson RODAS-QA ENGINEER Unavailable [phone] Karuna Zarate MD Primary Care Provider Source Comments [facility],non-owned Affiliates and Associated Physician Practices is amultiple site organization consisting of ambulatory clinics and hospital sitesin [place], [place], [place] and [place]. This disclosure is being madepursuant to the Care Everywhere program and may not contain all information available regarding this patient. Last updated 18.[facility] Allergies Active Allergy Reactions Criticality Noted Date [...] ORAL ROUTE ONCE DAILY FOR HEARTBURN Active clonazePAM (KlonoPIN) 0.5 MG tablet Take 1 (one) tablet by mouth 2 times daily as needed for Anxiety 60 tablet 05/22/20 24 Active meloxicam (Mobic) 7.5 MG tablet TAKE 1 TABLET BY MOUTH DAILY 30 tablet 01/20/20 25 Active cetirizine (ZyrTEC) 10 MG tablet TAKE 1 TABLET BY MOUTH ONCE DAILY 30 tablet 03/17/20 25 Active albuterol HFA (Proventil; Ventolin; Proair) 108 (90 Base) MCG/ACT inhaler INHALE 2 PUFFS BY MOUTH EVERY 6 HOURS NEEDED 18 g 03/17/20 25 Active fluticasone propionate (Flonase) 50 MCG/ACT nasal spray SHAKE LIQUID AND USE 1 SPRAY IN EACH NOSTRIL TWICE DAILY 48 g 04/06/20 25 Active albuterol HFA (Proventil; Ventolin; Proair) 108 (90 Base) MCG/ACT inhaler INHALE 2 PUFFS BY MOUTH EVERY 6 HOURS NEEDED 18 g 1 10/31/19 25 025 Discontinued cetirizine (ZyrTEC) 10 MG tablet TAKE 1 TABLET BY MOUTH ONCE DAILY 30 tablet 02/21/20 25 025 Discontinued fluticasone propionate (Flonase) 50 MCG/ACT nasal spray SHAKE LIQUID AND USE 1 SPRAY IN EACH NOSTRIL TWICE DAILY 16 g 02/21/20 25 025 Discontinued fluticasone propionate (Flonase) 50 MCG/ACT nasal spray SHAKE LIQUID AND USE 1 SPRAY IN EACH NOSTRIL TWICE DAILY 16 g 04/06/20 25 025 Discontinued Active Problems Problem Noted Date Diagnosed Date 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 Controlled substance agreement signed 05/22/2024 Personal [...] (05/22/2024): Added automatically from request for surgery [id number] Prediabetes 11/28/2016 Peripheral polyneuropathy 10/19/2016 Irritable bowel [...] Problem Noted Date Diagnosed Date Resolved Date Acute otitis externa of left ear 05/22/2024 11/19/2024 Gastroenteritis 05/17/2022 06/05/2024 Diarrhea 05/17/2022 06/19/2024 Cough 05/17/2022 06/19/2024 Encounters Date Type Department Care Team Description 04/06/2025 Refill [facility] [address], [address] [place] [phone] Karuna Zarate MD Refill Request 04/05/2025 Refill [facility] [address], [address] [place] [address] Karuna Zarate MD Refill Request 03/16/2025 Refill [facility] [address], [address] [place] [address] Karuna Zarate MD Refill Request 02/20/2025 Refill [facility] [address], [address] [place] [address] Karuna Zarate MD Refill Request 01/22/2025 Refill [facility] [address], [address] [place] [address] Karuna Zarate MD Refill Request 01/17/2025 Refill [facility] [address], [address] [place] [address] Karuna Zarate MD Refill Request from Last 3 Months Immunizations Immunization Administration [...] on file Legal Sex Female 6:26 AM ROOF TRUSS DETAILER Gender Identity Not on file Sexual Orientation Not on file Last Filed Vital Signs Vital Sign Reading Time Taken Comments Blood Pressure 108/78 07/04/2024 2:18 PM ROOF TRUSS DETAILER Pulse 78 07/04/2024 2:18 PM ROOF TRUSS DETAILER Temperature 36.7 C (98 F) 07/04/2024 2:18 PM ROOF TRUSS DETAILER Respiratory Rate 20 02/03/2020 11:22 AM CDT Oxygen Saturation 97% 05/22/2024 2:47 PM ROOF TRUSS DETAILER Inhaled Oxygen Concentration - - Weight 57.2 kg (126 lb) 07/04/2024 2:18 PM ROOF TRUSS DETAILER Height 167.6 cm (5' 6) 05/29/2024 11:25 AM ROOF TRUSS DETAILER Body Mass Index 20.34 05/29/2024 11:25 AM ROOF TRUSS DETAILER Plan of Treatment Upcoming Encounters Date Type Department Care Team (Late st Contact Info) Description 07/10/2025 1:30 PM ROOF TRUSS DETAILER Office Visit [facility] [address] [place] [address] [address] [place] [address] Alfredo Ward MD [address] [place] [address] [address] [place] [address] Health Maintenance Due Date Last Done Comments COLOGUARD (AGES 45-75) - COLON CA SCREENING [address] COLONOGRAPHY - COLON CA SCREENING 1955 FIT - COLON CA SCREENING 1955 FLEX SIG - COLON CA SCREENING 1954 HEPATITIS C SCREENING 03/14/1972 DTAP/TDAP/TD VACCINES (1 - Tdap) 1973 ZOSTER VACCINE (1 of 2) 2004 Respiratory Syncytial Virus (RSV) Vaccine Pt: or over 60 yrs (1 - Risk 60-74 years 1-dose series) 2014 PNEUMOCOCCAL VACCINE 50+ (2 of 2 - PPSV23, PCV20, or PCV21) 01/06/2020 11/11/2019 LUNG CANCER SCREENING 04/03/2020 04/03/2019 MAMMOGRAM 10/18/2023 10/17/2021, 01/14/2020 DEPRESSION SCREENING 06/11/2024 05/22/2024 MEDICARE AWV CALENDAR YEAR 2024 11/11/2019 COVID-19 VACCINE (3 - 2024-2 6 season) 2025 06/30/2021, 09/16/2020 INFLUENZA VACCINE (#1) 2025 COLONOSCOPY - COLON CA SCREENING 04/11/2028 04/11/2018 (Done Outside Per Report) Colorectal Cancer Screening 04/11/2028 LIPID TESTING 05/27/2029 05/27/2024, 04/04/2019 BONE DENSITY TESTING Completed 10/05/2021, 01/14/20 HEPATITIS B VACCINE Aged Out No longe [...] Procedure Name Priority Date/Time Associated Diagnosis Comments LIPID PROFILE Routine 05/27/2024 9:20 AM ROOF TRUSS DETAILER Screening for cardiovascular condition DEXA BONE DENSITY AXIAL SKELETON Routine 01/14/2020 1:20 PM CDT Ovarian failure MAMMO BILAT SCREENING Routine 01/14/2020 1:19 PM CDT Breast cancer screening from Last 3 Months or Most Recently Relevant to Health Maintenance Results * (ABNORMAL) LIPID PROFILE (05/27/2024 9:20 AM ROOF TRUSS DETAILER) Cholesterol 266(H) 100 - 199 mg/dL [facility] INSURANCE BILL Triglycerides 132 0 - 149 mg/dL [facility] INSURANCE BILL HDL Cholesterol 70 >39 mg/dL [facility] INSURANCE BILL VLDL Calculated 23 5 - 40 mg/dL [facility] INSURANCE BILL LDL Calculated 173(H) 0 - 99 mg/dL [facility] INSURANCE BILL Blood BLOOD SPECIMEN / Unknown 05/27/2024 9:20 AM ROOF TRUSS DETAILER 05/27/2024 Narrative [facility] INSURANCE BILL - 05/28/2024 6:09 AM ROOF TRUSS DETAILER Performed at: [facility] - [facility] [address], [place], [place] [id number] Wafer Batter Mixer: Tang Linda PhD, Phone: [phone] us Karuna Zarate MD LAB - CHEMISTRY ORDERAB LES Final Result [facility] INSURANCE BILL [address] [place] [address] * DEXA BONE DENSITY AXIAL SKELETON (01/14/2020 [...] if suspicious findings are present clinically. An [employer]. [facility] Breast Centers utilize flux - neutrinity as a reminder system to notify patients of their next recommended mammograms. Edited by Nicki Poole on 01/14/2020 2:21 PM *Reading Radiologist: Johanna Mera on 01/14/2020 at 2:25 PM Griffin Beltran MD MAMMO ORDERABLES Final Result from Last 3 Months or Most Recently Relevant to Health Maintenance Insurance [place]ICAID - [place] [facility] MANAGED MEDICARE ADV Care Teams Timber Treating Tank Operator Relationship Specialty Start Date End Date Karuna Zarate MD [address] [place] [address] PCP - General Internal Medicine 05/22/24 Bryant Franco APRN-QA ENGINEER [address] [facility] [address] [place] [address] Nurse Practitioner Nurse Practitioner Psychiatric Mental Health 02/03/20
[2025-04-13 08:05] LABS: Hematocrit 40.1 % (37.0-47.0); Hemoglobin 13.0 g/dL (12.0-15.0); Immature Granulocyte Percent A 0.3 % (0-0.5); Lymphocytes Absolute Auto 1.63 K/mm3 (0.9-3.2); Mean Corpuscular HGB Conc 32.4 g/dl (32-36); Mean Corpuscular Hemoglobin 30.7 pg (26-34); Mean Corpuscular Volume 94.8 fl (80-100); Nucleated Red Blood Cells Absolute Auto 0.000 K/mm3 (0.0-0.012); Nucleated Red Blood Cells Perc 0.0 % (0.0-0.2); Platelet Count Result 344 k/mm3 (150-375); Red Blood Count 4.23 M/mm3 (4.2-5.4); White Blood Count 9.8 K/mm3 (4.5-10.0)
[2025-04-13 08:22] LABS: Alanine Aminotransferase 19 U/L (6-35); Albumin Level 4.2 g/dL (3.5-5.1); Alkaline Phosphatase 71 U/L (38-126); Anion Gap 7 mmol/L (4-12); Aspartate Amino Transferase 31 U/L (14-36); Bilirubin,Total 0.4 mg/dL (0.2-1.3); Blood Urea Nitrogen 14 mg/dL (7-17); Calcium 9.0 mg/dL (8.4-10.2); Carbon Dioxide 24 mmol/L (22-30); Chloride 108 mmol/L (98-107); Estimated CRCL calculation 62 ml/min; Estimated Glomerular Filt Rate > 60; Glucose 116 mg/dL (65-110); Magnesium 1.8 mg/dL (1.6-2.3); Potassium 3.8 mmol/L (3.4-5.0); Sodium 139 mmol/L (137-145); Total Protein 7.3 g/dL (6.3-8.2)
[2025-04-13 08:34] LABS: Troponin I < 0.012 ng/mL (0.000-0.034)
[2025-04-13 08:56] VITALS: BP 115/71; PULSE 93; RESP 20; O2SAT 99
[2025-04-13 08:58] VITALS: BP 148/70; PULSE 74; RESP 16; O2SAT 100
== END 2025-04-13 09:09 | disposition home or self-care (01) ==
PROVIDERS: Emergency Provider Emergency Medicine; PCP Family Medicine
DX: R00.2 Palpitations (principal); F32.A Depression, unspecified; F41.9 Anxiety disorder, unspecified; M19.90 Unspecified osteoarthritis, unspecified site; K21.9 Gastro-esophageal reflux disease without esophagitis; J44.9 Chronic obstructive pulmonary disease, unspecified; Z87.891 Personal history of nicotine dependence
CPT/HCPCS: 36415; 80053; 83735; 84484; 85025; 93005; 99284

== ENCOUNTER 2025-04-27 11:53 | Outpatient (CLI) | payer MEDICARE, MEDICAID, SELFPAY ==
--- NOTE | ~2025-04-27 | XR_ITS ---
EXAMINATION: XR shoulder RT min 2V, 04/27/2025 12:18 FREIGHT UNLOADER HISTORY: RT SHOULDER PAIN x1 YR;HX OF FRACTURE DISLOCATION 2 YRS AG COMPARISON: No comparisons available. Findings: No acute fracture or malalignment. Severe degenerative changes with calcific tendinopathy Soft tissues unremarkable. Impression: No acute fracture or malalignment. Reviewed, dictated and finalized at location P. GHT UNLOADER Impression: No acute fracture or malalignment.
--- NOTE | ~2025-04-27 | XR_ITS ---
EXAMINATION: XR shoulder LT min 2V, 04/27/2025 12:18 SPA ATTENDANT HISTORY: LT SHOULDER PAIN x1 YEAR COMPARISON: No comparisons available. Findings: No acute fracture or malalignment. No significant degenerative changes. Soft tissues unremarkable. Impression: No acute fracture or malalignment. Reviewed, dictated and finalized at location P. ATTENDANT Impression: No acute fracture or malalignment.
[2025-04-27 14:04] LABS: Thyroid Stimulating Hormone Reflex 0.604 uIU/mL (0.465-4.68)
== END 2025-04-27 11:54 | disposition home or self-care (01) ==
PROVIDERS: PCP Family Medicine; Visit Provider Nurse Practitioner Adult Health
DX: F41.8 Other specified anxiety disorders (principal); I48.0 Paroxysmal atrial fibrillation; M25.511 Pain in right shoulder; M25.512 Pain in left shoulder
CPT/HCPCS: 36415; 73030; 84443

== ENCOUNTER 2025-05-04 11:56 | Outpatient (CLI) | payer MEDICARE, MEDICAID, SELFPAY ==
--- NOTE | ~2025-05-04 | XR_ITS ---
EXAMINATION: XR chest 2V, 05/04/2025 12:10 CORRESPONDENCE SECTION SUPERVISOR HISTORY: R05.9 - Cough, unspecified HX ASTHMA COMPARISON: No comparisons available. Technique: 2 views obtained. Findings: The lungs are clear, no effusion. No pneumothorax. Heart is normal size. Mediastinal and hilar contours are within normal limits. Bony thorax no acute abnormality. Impression: No acute cardiopulmonary abnormality. Reviewed, dictated and finalized at location P. ESPONDENCE SECTION SUPERVISOR Impression: No acute cardiopulmonary abnormality.
--- OUTSIDE RECORDS SUMMARY | 2025-05-04 13:53 | XMS_ITS | Clinical Summary ---
Author Organization [facility] Address [address] [place] [address] Care Team Providers Care Assistant Elementary Teacher Name Role Phone Bryant Francoemerson RODAS-COMPUTER RECYCLING WORKER Unavailable [phone]- [phone] Karuna Zarate MD Primary Care Provider Source Comments [facility],non-owned Affiliates and Associated Physician Practices is amultiple site organization consisting of ambulatory clinics and hospital sitesin [place], [place], [place] and [place]. This disclosure is being madepursuant to the Care Everywhere program and may not contain all information available regarding this patient. Last updated 18.[facility] Allergies Active Allergy Reactions Criticality Noted [...] ONCE DAILY 30 tablet 03/17/20 25 Active fluticasone propionate (Flonase) 50 MCG/ACT nasal spray SHAKE LIQUID AND USE 1 SPRAY IN EACH NOSTRIL TWICE DAILY 48 g 04/06/20 25 Active albuterol HFA (Proventil; Ventolin; Proair) 108 (90 Base) MCG/ACT inhaler INHALE 2 PUFFS BY MOUTH EVERY 6 HOURS NEEDED 18 g 04/14/20 25 Active fluticasone propionate (Flonase) 50 MCG/ACT nasal spray SHAKE LIQUID AND USE 1 SPRAY IN EACH NOSTRIL TWICE DAILY 16 g 02/21/20 25 025 Discontinued albuterol HFA (Proventil; Ventolin; Proair) 108 (90 Base) MCG/ACT inhaler INHALE 2 PUFFS BY MOUTH EVERY 6 HOURS NEEDED 18 g 03/17/20 25 025 Discontinued fluticasone propionate (Flonase) 50 [...] (05/22/2024): Added automatically from request for surgery [id number] Prediabetes 11/28/2016 Peripheral polyneuropathy 10/19/2016 Irritable bowel [...] Encounters Date Type Department Care Team Description 04/14/2025 Refill [facility] - [facility] Medicine [address], [address] [place] [phone] Karuna Zarate MD Refill Request 04/06/2025 Refill [facility] [address] [place] [phone] Karuna Zarate MD Refill Request 04/05/2025 Refill [facility] [address] [place] [address] Karuna Zarate MD Refill Request 03/16/2025 Refill [facility] [address] [place] [phone] Karuna Zarate MD Refill Request 02/20/2025 Refill [facility] [address] [facility] [place] [phone] Karuna Zarate MD Refill Request from Last [...] on file Legal Sex Female 6:26 AM BOX LINER Gender Identity Not on file Sexual Orientation Not on file Last Filed Vital Signs Vital Sign Reading Time Taken Comments Blood Pressure 108/78 07/04/2024 2:18 PM BOX LINER Pulse 78 07/04/2024 2:18 PM BOX LINER Temperature 36.7 C (98 F) 07/04/2024 2:18 PM BOX LINER Respiratory Rate 20 02/03/2020 11:22 AM CDT Oxygen Saturation 97% 05/22/2024 2:47 PM BOX LINER Inhaled Oxygen Concentration - - Weight 57.2 kg (126 lb) 07/04/2024 2:18 PM BOX LINER Height 167.6 cm (5' 6) 05/29/2024 11:25 AM BOX LINER Body Mass Index 20.34 05/29/2024 11:25 AM BOX LINER Plan of Treatment Upcoming Encounters Date Type Department Care Team (Late st Contact Info) Description 07/10/2025 1:30 PM BOX LINER Office Visit [facility] Heart [facility] Care [address] [place] [address] Alfredo Ward MD [address] [place] [address] [address] [place] [address] Health Maintenance Due Date Last Done Comments COLOGUARD (AGES 45-75) - COLON CA SCREENING [address] COLONOGRAPHY - COLON CA SCREENING 1954 FIT - COLON CA SCREENING 1954 FLEX SIG - COLON CA SCREENING 1954 HEPATITIS C SCREENING 03/14/1972 DTAP/TDAP/TD VACCINES (1 - Tdap) 1973 Respiratory Syncytial Virus (RSV) Vaccine Pt: or over 60 yrs (1 - Risk 50-74 years 1-dose series) 2004 ZOSTER VACCINE (1 of 2) 2004 PNEUMOCOCCAL VACCINE 50+ (2 of 2 - [...] Comments LIPID PROFILE Routine 05/27/2024 9:20 AM BOX LINER Screening for cardiovascular condition DEXA BONE DENSITY AXIAL SKELETON Routine 01/14/2020 1:20 PM CDT Ovarian failure MAMMO BILAT SCREENING Routine 01/14/2020 1:19 PM CDT Breast cancer screening from Last 3 Months or Most Recently Relevant to Health Maintenance Results * (ABNORMAL) LIPID PROFILE (05/27/2024 9:20 AM BOX LINER) Cholesterol 266(H) 100 - 199 mg/dL [facility] INSURANCE BILL Triglycerides 132 0 - 149 mg/dL [facility] INSURANCE BILL HDL Cholesterol 70 >39 mg/dL [facility] INSURANCE BILL VLDL Calculated 23 5 - 40 mg/dL [facility] INSURANCE BILL LDL Calculated 173(H) 0 - 99 mg/dL [facility] INSURANCE BILL Blood BLOOD SPECIMEN / Unknown 05/27/2024 9:20 AM BOX LINER 05/27/2024 Narrative [facility] INSURANCE BILL - 05/28/2024 6:09 AM BOX LINER Performed at: [address] [id number] Supervisor Public Health Nursing: Tang Linda PhD, Phone: [phone] us Karuna Zarate MD LAB - CHEMISTRY ORDERAB LES Final Result [facility] INSURANCE BILL [address] [place] [address] * DEXA BONE DENSITY AXIAL SKELETON (01/14/2020 [...] tomosynthesis images were performed. TECHNOLOGIST: Corinne Muñiz, (R)(M) TISSUE DENSITY: Heterogeneously dense. This may [...] if suspicious findings are present clinically. An [employer] Facility. [facility] Breast Centers utilize [employer] as a reminder system to notify patients of their next recommended mammograms. Edited by Nicki Poole on 01/14/2020 2:21 PM *Reading Radiologist: Johanna Mera on 01/14/2020 at 2:25 PM Griffin Beltran MD MAMMO ORDERABLES Final Result from Last 3 Months or Most Recently Relevant to Health Maintenance Insurance MEDICAID - [place] [employer] MANAGED MEDICARE ADV Care Teams Assistant Elementary Teacher Relationship Specialty Start Date End Date Karuna Zarate MD [address] [place] [address] PCP - General Internal Medicine 05/22/24 Bryant Franco, CLARK-COMPUTER RECYCLING WORKER [facility] [address] [place] [address] Nurse Practitioner Nurse Practitioner Psychiatric Mental Health 02/03/20
== END 2025-05-04 11:57 | disposition home or self-care (01) ==
PROVIDERS: PCP Family Medicine; Visit Provider Family Medicine
DX: R05.9 Cough, unspecified (principal)
CPT/HCPCS: 71046

== ENCOUNTER 2025-05-15 14:39 | Outpatient (CLI) | payer MEDICARE, MEDICAID, SELFPAY | END 2025-05-15 14:40 | disposition home or self-care (01) | LOC: ANHCARD 14:40 | PROVIDERS: PCP Family Medicine; Visit Provider Family Medicine | DX: I48.0 Paroxysmal atrial fibrillation (principal) | CPT/HCPCS: 93242 ==

== ENCOUNTER 2025-06-09 15:09 | Outpatient (CLI) | payer MEDICARE, MEDICAID, SELFPAY ==
--- NOTE | ~2025-06-09 | XR_ITS ---
XR sacrum coccyx min 2V 06/09/2025 16:05 Indication: Right hip pain Procedure: 3 views sacrum/coccyx Comparison: 06/09/2025 Findings: There is mild bilateral symmetric degenerative changes of the sacroiliac joints. No fracture, subluxation or dislocation. There is advanced lower lumbar spondylosis Impression: 1: Moderate degenerative changes lower lumbar spine and sacroiliac joints. Reviewed, dictated and finalized at location O. RD FILING CLERK Impression: 1: Moderate degenerative changes lower lumbar spine and sacroiliac joints.
--- NOTE | ~2025-06-09 | XR_ITS ---
EXAMINATION: XR hip BI 2V w AP pelvis DATE: 06/09/2025 16:05 INDICATION: Right hip pain TECHNIQUE: Anteroposterior view of the pelvis and anteroposterior and frog-leg lateral views of the left hip and anteroposterior and frog-leg lateral views of the right hip and were obtained. COMPARISON: None. FINDINGS: Mild dextrocurvature of the visualized lower lumbar spine with severe spondylosis. No fracture or suspected osteonecrosis. Mild osteoarthritis at the at the bilateral hips and left sacroiliac joint. Mild to moderate osteoarthritis at the right sacroiliac joint. Sclerotic likely bone island along the cephalad aspect of the left acetabulum. A few phleboliths in the pelvis. IMPRESSION: 1. Mild osteoarthritis of the bilateral hips. No acute osseous abnormality. 2. Severe lower lumbar spondylosis. Reviewed, dictated and finalized at location A. CLEANING ATTENDANT
--- NOTE | ~2025-06-09 | MR_ITS ---
EXAMINATION: MR lumbar spine wo con DATE: 06/09/2025 15:44 INDICATION: Chronic low back pain. Lumbar radiculopathy. TECHNIQUE: Magnetic resonance imaging (MRI) of the lumbar spine was performed without intravenous contrast. COMPARISON: Lumbar spine radiographs 06/09/2025 FINDINGS: There is 10 degrees levoscoliosis of lumbar spine. There is a chronic compression fracture of L2 with less than 1/5 loss of height. There is mildly decreased disc height at L3-L4 and severely decreased disc height at L4-L5 and L5-S1. The distal spinal cord signal intensity is normal. The conus medullaris is at T12-L1. The following disc levels are specifically discussed: L1-L2: The disc is bulging. There is mild bilateral facet joint osteoarthritis. There is mild bilateral neural foraminal stenosis. There is mild central canal stenosis. L2-L3: The disc is bulging. There is moderate bilateral facet joint osteoarthritis. There is mild bilateral neural foraminal stenosis. There is mild central canal stenosis. L3-L4: The disc is bulging. There is mild right and severe left facet joint osteoarthritis. There is mild bilateral neural foraminal stenosis. There is mild central canal stenosis. L4-L5: The disc is bulging and has an annular fissure. There is severe bilateral facet joint osteoarthritis. There is mild bilateral neural foraminal stenosis. There is mild central canal stenosis. There is severe stenosis of left lateral recess. L5-S1: The disc is bulging and has an annular fissure. There is severe bilateral facet joint osteoarthritis. There is mild bilateral neural foraminal stenosis. There is mild central canal stenosis. IMPRESSION: 1. Severe lumbar spondylosis. 2. Lumbar dextroscoliosis. Reviewed, dictated and finalized at location E. ECHNICIAL PROPERTIES TECHNICIAN
--- NOTE | ~2025-06-09 | XR_ITS ---
EXAMINATION: XR lumbar spine 6V w bending DATE: 06/09/2025 16:05 INDICATION: Spondylosis without myelopathy or discopathy TECHNIQUE: Anteroposterior, lateral in neutral, flexion and extension, and bilateral oblique views of the lumbar spine, and cone-down lateral view of the lumbosacral junction were obtained. COMPARISON: None. FINDINGS: 20 degrees lumbar dextroscoliosis with mild compensatory levocurvature at the thoracolumbar junction. 3 mm anterolisthesis L4 on L5. 2 mm anterolisthesis L4 on L5. Vertebral body heights are normal. No pars interarticularis defects. Severe disc height loss at L4-L5 and L5-S1. Severe facet osteoarthritis bilaterally at L4-L5 and L5-S1 and on the left at L3-L4. Mild to moderate facet osteoarthritis and remainder of the lumbar spine. Mild bilateral sacroiliac osteoarthritis. IMPRESSION: 1. 20 degree lumbar dextroscoliosis with severe spondylosis. Reviewed, dictated and finalized at location A. CORPORATE DEVELOPMENT
== END 2025-06-09 15:10 | disposition home or self-care (01) ==
LOC: MICIMG 15:10
PROVIDERS: PCP Family Medicine; Visit Provider Nurse Practitioner Adult Health
DX: M43.06 Spondylolysis, lumbar region (principal); M41.86 Other forms of scoliosis, lumbar region; M16.0 Bilateral primary osteoarthritis of hip
CPT/HCPCS: 72114; 72148; 72220; 73521